=== PATIENT | female | born 1960 | race Caucasian/White ===

== ENCOUNTER 2016-12-21 00:28 | Emergency (ER) | payer OTHER ==
[~2016-12-21] VITALS: Ht 167.6 cm; Wt 59.0 kg
[2016-12-21 00:54] VITALS: BP 122/82
--- NOTE | 2016-12-21 02:47 | NUR ---
Patient to bed 06.
[2016-12-21] MEDS ORDERED: MINERAL OIL 135 ML ENEM RC ONE (03:00)
--- NOTE | 2016-12-21 03:05 | NUR ---
Patient being evaluated by at bedside.
--- NOTE | 2016-12-21 03:07 | NUR ---
55Y/F PATIENT PRESENT TO ED WITH C/O CONSTIPATION. PT. HX OF IBS AND SEVERELY CONSTIPATED AND EXTREMELY PAINFUL; SKIN IS PINK/WARM/DRY; AAOX4 WITH EVEN AND STEADY GAIT; LUNGS CLEAR BL; HR EVEN AND REGULAR; PT DENIES ANY FEVER, CP, SOB, OR COUGH AT THIS TIME; HYPOACTIVE BOWEL SOUND X 4, PATIENT STATES PAIN OF 10/10 AT THIS TIME; VSS; PATIENT POSITIONED FOR COMFORT; HOB ELEVATED; BEDRAILS UP X2; BED DOWN. ER MD MADE AWARE OF PT STATUS.
--- NOTE | 2016-12-21 04:00 | NUR ---
Patient discharged with v/s stable. Written and verbal after care instructions given and explained. Patient alert, oriented and verbalized understanding of instructions. Ambulatory with steady gait. All questions addressed prior to discharge. ID band removed. Patient advised to follow up with PMD. Rx of MAGNESIUM CITRATE LOW SODIUM SOLUTION given. Patient educated on indication of medication including possible reaction and side effects. Opportunity to ask questions provided and answered.
[2016-12-21 04:15] VITALS: BP 122/82
== END 2016-12-21 04:00 | disposition home or self-care (01) ==
LOC: MED 00:28
DX: K59.09 Other constipation (principal); K58.1 Irritable bowel syndrome with constipation; Z86.73 Personal history of transient ischemic attack (TIA), and cerebral infarction without residual deficits
CPT/HCPCS: 74000; 99283

== ENCOUNTER 2020-03-04 16:43 | Emergency (ER) | payer OTHER ==
[~2020-03-04] VITALS: Ht 167.6 cm; Wt 68.5 kg
[2020-03-04 16:49] VITALS: BP 130/80
--- NOTE | 2020-03-04 17:00 | NUR ---
PT AMBULATED TO ER BED
--- NOTE | 2020-03-04 17:09 | NUR ---
59 Y/O FEMALE PRESENTS WITH 8/10 ABD PAIN + N/V/D X 3 MONTHS, REPORTS SYMPTOMS ARE ON/OFF. PT STATES THE N/V/D COME IN BOUTS, AND PAIN IS INTERMITTENT. ABD SOFT/NON DISTENDED. LAST BM: TODAY. PT IS CURRENTLY IN MENOPAUSE. RESP EVEN AND UNLABORED. LUNG SOUNDS CLEAR IN BILAT LOBES. PT ABLE TO AMBULATE TO BATHROOM TO PROVIDE URINE. NKA
[2020-03-04 18:37] VITALS: BP 130/80
--- NOTE | 2020-03-04 18:37 | NUR ---
DPatient discharged with v/s stable. Written and verbal after care instructions given and explained. Patient alert, oriented and verbalized understanding of instructions. Ambulatory with steady gait. All questions addressed prior to discharge. ID band removed. Patient advised to follow up with PMD. Rx of CIPRO, PRILOSEC given. Patient educated on indication of medication including possible reaction and side effects. Opportunity to ask questions provided and answered.
== END 2020-03-04 18:37 | disposition home or self-care (01) ==
LOC: MED 16:43
DX: N39.0 Urinary tract infection, site not specified (principal); R19.7 Diarrhea, unspecified; K59.00 Constipation, unspecified; E07.9 Disorder of thyroid, unspecified; F17.210 Nicotine dependence, cigarettes, uncomplicated; Z86.73 Personal history of transient ischemic attack (TIA), and cerebral infarction without residual deficits
CPT/HCPCS: 81002; 81025; 99283